=== PATIENT | female | born 2000 | race Caucasian/White ===

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

== ENCOUNTER 2023-10-16 23:48 | Emergency (ER) | payer MEDICAID ==
[2023-10-17 00:19] VITALS: O2SAT 99
--- NOTE | 2023-10-17 00:23 | ED Physician Documentation ---
PD HPI LOWER EXT INJURY - Stated complaint Stated Complaint: LT ANKLE INJ - Chief complaint Chief Complaint: Ext Problem - History obtained from History obtained from: Patient - History of Present Illness PD HPI LOW EXT INJURY LOCATION: Left, Ankle Type of injury: Twist (stumbled going down steps, with inversion. Pain and swelling along with bruising developed rather promptly. Pain with walking.) Review of Systems Skin: denies: Abrasion (s), Laceration (s) Neurologic: denies: Focal weakness, Numbness, Head injury PD PAST MEDICAL HISTORY - Past Medical History Past Medical History: No Cardiovascular: None Respiratory: None Neuro: None Endocrine/Autoimmune: None GI: None [employer]: None : None HEENT: None Psych: None Musculoskeletal: None Derm: None - Past Surgical History Past Surgical History: No - Allergies Allergies/Adverse Reactions: Allergies Allergy/AdvReac Type Severity Reaction Status Date / Time No Known Drug Allergies Allergy Verified 10/17/23 00:00 - Social History Does the pt smoke?: No Smoking Status: Never smoker Does the pt drink ETOH?: Yes Does the pt have substance abuse?: No - Immunizations Immunizations are current?: Yes - POLST Patient has POLST: No PD ED PE NORMAL - Vitals Vital signs reviewed: Yes - General General: Alert and oriented X 3, Well developed/nourished - Derm Derm: Normal color, Warm and dry - Extremities Extremities: Other (left ankle with moderate swelling mostly laterally with some bruisng anterodorsal aspect. Achilles firm and intact. Medially mildly tender. ) - Neuro Neuro: No motor deficit, No sensory deficit Results - Vitals Vitals: Oxygen O2 Source Room air - Rads (name of study) ankle Relevant Findings:: Prelim report reviewed (no fractures), EMP independent interpretation of test PD Medical Decision Making - ED course Complexity details: reviewed results, considered differential (no fractures. Given swelling and pain and some bruising already, would presume some ligamentous ijuries/tears. Might be more prolonged healing than simple sprain. Tch applied boot orthosis and gave crutches. ), d/w patient Departure - Departure Disposition: 01 Home, Self Care Clinical Impression: Ankle sprain Qualifiers: Encounter type: initial encounter Involved ligament of ankle: anterior talofibular ligament Laterality: left Qualified Code(s): S93.492A - Sprain of other ligament of left ankle, initial encounter Condition: Stable Record reviewed to determine appropriate education?: Yes Instructions: ED Sprain Ankle Follow-Up: [facility] [Provider Group] Shayy Casper ARNP [Primary Care Provider] - Comments: Your x-ray does not show any fractures. Obviously there is still injury to the ankle with the swelling and pain. Presume you have injured some of the ligaments and muscles with likely some partial tearing to lead to the bruising. This can still take a while for healing, several weeks or so. Use the ankle brace pretty consistently for the next week or so. He will want to use it when up and around or active for even 2 to 3 weeks. Crutches initially for nonweightbearing or partial weightbearing as needed for pain and progress weightbearing as tolerated. Ice elevate and rested often to reduce swelling over the next couple of days. Consider some ibuprofen 400 to 600 mg 3 times a day regularly for the next several days to week to help with pain. Add Tylenol every 4-6 hours if needed. Follow-up with your primary or orthopedics if not improving well over the next several days to week to the point of being more weightbearing and then reasonably all healed over 2 to 3 weeks. Forms: PCP List Discharge Date/Time: 10/17/23 00:59
--- NOTE | 2023-10-17 00:51 | XRAY Report ---
PROCEDURE: Ankle 3+V LT INDICATIONS: twisting injury TECHNIQUE: 3 views of the ankle were acquired. COMPARISON: 12/23/2021 FINDINGS: Bones: No fractures or dislocations. Ankle mortise is normally aligned. No suspicious bony lesions . Soft tissues: Unremarkable without significant soft tissue swelling. No radiopaque foreign body. IMPRESSION: Soft tissues without acute fracture or foreign body Reviewed by: Ryan Miller MD on 10/16/2023 11:50 PM [facility] Approved by: Ryan Miller MD on 10/16/2023 11:50 PM [facility] Station ID: [id number]
[2023-10-17] MEDS: ACETAMINOPHEN 325 MG TABLET PO STA (00:58)
[2023-10-17] MEDS: IBUPROFEN 600 MG TABLET PO STA (00:58)
[2023-10-17 01:13] VITALS: BP 124/68
== END 2023-10-17 00:59 | disposition home or self-care (01) ==
LOC: ED 23:48
DX: S93.492A Sprain of other ligament of left ankle, initial encounter (principal); X50.9XXA Other and unspecified overexertion or strenuous movements or postures, initial encounter
CPT/HCPCS: 99283